=== PATIENT | male | born 1995 | race Caucasian/White ===

== ENCOUNTER 2022-02-03 12:27 | Outpatient (CLI) | payer OTHER, SELFPAY ==
[2022-02-03 18:50] LABS: Hematocrit 44.4 % (42.0-52.0); Hemoglobin 14.4 g/dL (14.0-18.0); Mean Corpuscular HGB Conc 32.4 g/dl (32-36); Mean Corpuscular Hemoglobin 29.1 pg (26-34); Mean Corpuscular Volume 89.7 fl (80-100); Mean Platelet Volume 9.8 fl (7.4-10.4); Platelet Count Result 268 k/mm3 (150-375); Red Blood Count 4.95 M/mm3 (4.6-6.20); Red Cell Distribution Width 12.4 % (11.5-14.5); White Blood Count 6.8 K/mm3 (4.5-10.0)
[2022-02-03 18:59] LABS: Alanine Aminotransferase 26 U/L (6-50); Albumin Level 5.1 g/dL (3.5-5.1); Alkaline Phosphatase 86 U/L (38-126); Anion Gap 18 mmol/L (8-16); Aspartate Amino Transferase 62 U/L (17-59); Bilirubin,Total 0.5 mg/dL (0.2-1.3); Blood Urea Nitrogen 15 mg/dL (9-20); Calcium 9.2 mg/dL (8.4-10.2); Carbon Dioxide 27 mmol/L (22-30); Chloride 99 mmol/L (98-107); Cholesterol 134 mg/dL (0-200); Estimated Glomerular Filt Rate > 60; Glucose 102 mg/dL (65-110); HDL Direct 55 mg/dL; Potassium 3.9 mmol/L (3.4-5.0); Sodium 144 mmol/L (137-145); Triglycerides 48 mg/dL (<150)
[2022-02-03 19:09] LABS: LDL Cholesterol Direct 57 mg/dL
== END 2022-02-03 12:28 | disposition home or self-care (01) ==
LOC: ANHBWCLAB 12:29
PROVIDERS: PCP Family Medicine; Visit Provider Family Medicine
DX: Z00.00 Encounter for general adult medical examination without abnormal findings (principal)
CPT/HCPCS: 36415; 80053; 80061; 85027

== ENCOUNTER 2022-05-25 08:11 | Emergency (ER) | payer OTHER, SELFPAY ==
[2022-05-25 08:15] VITALS: BP 127/75; PULSE 64; RESP 18; TEMP 36.6; O2SAT 100
--- NOTE | 2022-05-25 08:15 | ED.EYEPROB ---
HPI - Eye Problem General Chief complaint: Eye Problems Stated complaint: Eye Problem Source: patient and RN notes reviewed History of Present Illness HPI Narrative: A 7-year-old male presents to urgent care with right eye irritation. Patient states he patient has white discharge yesterday in his right eye and this morning woke up with it matted shut. Patient reports a slight blurry vision yesterday but denies any today. Denies any pain or itchiness. Patient is not wear contacts. Some parts of this dictation were generated by voice recognition software and may contain typographical and/or grammatical inaccuracies. Related Data Allergies Allergy/AdvReac Type Severity Reaction Status Date / Time No Known Allergies Allergy Verified 05/25/22 08:22 Review of Systems Review of Systems: CONSTITUTIONAL: Denies fever, chills, or sweats. EYES: Right eye discharge and irritation ENT: Denies otalgia and sore throat CARDIOVASCULAR: Denies chest pain, palpitations, or edema. RESPIRATORY: Denies cough or dyspnea. GASTROINTESTINAL: Denies abdominal pain, nausea, vomiting, or diarrhea. GENITOURINARY: Denies dysuria or hematuria. SKIN: Denies rash or itching. MUSCULOSKELETAL: Denies back pain, joint pain, or myalgia. NEUROLOGIC: Denies headache, numbness, or weakness. 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 There is no relevant family history pertinent to the patient complaint. Exam Narrative: GENERAL: This is a well-nourished, well-developed patient, in no apparent distress. HEAD: normocephalic, atraumatic. EYES: PERRL. Vision is grossly intact. Right lower conjunctiva the to be injected. Dry discharge noted on the lashes. Sclera erythemic. EARS: External ears normal, auditory canals clear and without drainage, TMs normal without perforation. Hearing grossly intact. NOSE: External nose normal with no obvious nasal discharge, nares without redness, no rhinorrhea. THROAT: Mucous membranes moist, posterior pharynx clear. NECK: Neck supple, non-tender without lymphadenopathy, masses or thyromegaly. CARDIOVASCULAR: Regular rate RESPIRATORY: No respiratory distress SKIN: warm, intact with no suspicious lesions or rash, good texture and turgor. NEURO: awake, alert, and oriented to person, place and time. There were no obvious focal neurologic abnormalities. Course Course Level of Care: Express Care Visit Vital Signs Vital signs: Vital Signs Temperature 97.8 F 05/25/22 08:15 Pulse Rate 64 05/25/22 08:15 Respiratory Rate 18 05/25/22 08:15 Blood Pressure 127/75 05/25/22 08:15 Pulse Oximetry 100 05/25/22 08:15 Oxygen Delivery Room Air 05/25/22 08:15 Temperature 97.8 F 05/25/22 08:15 Pulse Rate 64 05/25/22 08:15 Respiratory Rate 18 05/25/22 08:15 Blood Pressure 127/75 05/25/22 08:15 Pulse Oximetry 100 05/25/22 08:15 Oxygen Delivery Room Air 05/25/22 08:15 Reviewed MDM - Eye Problem MDM Narrative Medical decision making narrative: Patient was instructed to follow-up with emergency department or the whittling room operator if symptoms worsen or do not improve over the next few days. Differential Diagnosis Differential diagnosis: Likely corneal abrasion, conjunctivitis and acute iritis Critical Care Time Critical Care Time Critical Care T
== END 2022-05-25 08:30 | disposition home or self-care (01) ==
PROVIDERS: Emergency Provider Nurse Practitioner Family; PCP Family Medicine
DX: H10.31 Unspecified acute conjunctivitis, right eye (principal)
CPT/HCPCS: 99213; G0463